=== PATIENT | female | born 1945 | race Caucasian/White ===

== ENCOUNTER 2017-07-11 10:39 | Inpatient (IN) | payer MEDICARE, OTHER ==
[~2017-07-11] VITALS: Ht 165.1 cm; Wt 92.2 kg
[~2017-07-11 10:39] MED LIST: ATOR40TA3 PO; BUSP10TA10 PO; CARV-49 PO; CLOP75TA15 PO; DEXA0.5E2 PO; DIAZ10TA PO; DULO60CA64 PO; FURO-150 PO; LISI-642 PO; LURA40TA3 PO; NITR0.4T51 SL; ONDA8TAB6 PO; OXYC-134 PO; POTA10TA15 PO; RIVA15TA PO; TRAZ-143 PO; ZALE10CA29 PO; [UNRECOGNIZED DRUG - CODE] CORPAK
[2017-07-11] MEDS ORDERED: LORazepam 1 MG tablet PO ONE (11:35)
[2017-07-11 14:13] LABS: BASOPHILS % (AUTO) 0 % (0-1); EOSINOPHILS # (AUTO) 0.1 X10'3 (0-0.9); EOSINOPHILS % (AUTO) 1.3 % (0-6); HEMATOCRIT 36.9 % (35.0-45.0); HEMOGLOBIN 12.9 g/dl (12.0-16.0); LYMPHOCYTES # (AUTO) 2.4 X10'3 (1.1-4.8); LYMPHOCYTES % (AUTO) 32.1 % (21-51); MEAN CORPUSCULAR HGB CONC 34.8 % (33.0-36.5); MEAN CORPUSCULAR VOLUME 94.7 FL (78-98); MEAN PLATELET VOLUME 7.9 FL (7.4-10.4); MONOCYTES # (AUTO) 0.6 X10'3 (0-0.9); MONOCYTES % (AUTO) 8.5 % (2-12); NEUTROPHILS # (AUTO) 4.4 X10'3 (1.8-7.7); NEUTROPHILS % (AUTO) 58.1 % (42-75); PLATELET COUNT 263 X10'3 (140-440); RED CELL DISTRIBUTION WIDTH 12.8 % (11.5-14.5); WHITE BLOOD COUNT 7.5 X10'3 (4.5-11.0)
[2017-07-11 14:37] LABS: ALANINE AMINOTRANSFERASE 19 U/L (12-78); ALBUMIN 3.6 G/DL (3.4-5.0); ALBUMIN/GLOBULIN RATIO 0.9 (1.1-1.5); ALKALINE PHOSPHATASE 96 IU/L (46-116); ANION GAP 10 (8-16); ASPARTATE AMINO TRANSFERASE 22 U/L (10-37); BILIRUBIN,TOTAL 1.2 MG/DL (0.1-1.0); BLOOD UREA NITROGEN 20 MG/DL (7-18); BUN/CREATININE RATIO 18.7 (6.6-38.0); CALCIUM 9.6 MG/DL (8.5-10.1); CHLORIDE 99 MMOL/L (99-107); CREATININE 1.07 MG/DL (0.40-0.90); ETHANOL < 0.010 GM/DL (0.0-0.010); GLUCOSE 134 MG/DL (70-104); SODIUM 138 MMOL/L (135-145); TOTAL CARBON DIOXIDE 29.2 MMOL/L (24-32); TOTAL PROTEIN 7.8 G/DL (6.4-8.2); eGFR 50 ML/MIN
[2017-07-11] MEDS ORDERED: ATOR40TA3 PO (17:18)
[2017-07-11] MEDS ORDERED: INSU100V9 SQ (17:18)
[2017-07-11] MEDS ORDERED: PRAM0.253 PO (17:18)
[2017-07-11] MEDS ORDERED: CARV-50 PO (17:18)
[2017-07-11] MEDS ORDERED: QUET25TA PO (17:18)
[2017-07-11] MEDS ORDERED: FURO-149 PO (17:18)
[2017-07-11] MEDS ORDERED: OXCA150T5 PO (17:18)
[2017-07-11] MEDS ORDERED: GABA800T2 PO (17:18)
[2017-07-11] MEDS ORDERED: OXYC-523 PO (17:18)
[2017-07-11 18:08] LABS: CLARITY,URINE SLIGHTLY CLOUDY (Clear); COLOR,URINE YELLOW (Yellow); GLUCOSE, URINE NEGATIVE (Neg); KETONES,URINE 40 mg/dl (Neg); LEUKOCYTE ESTERASE ,URINE MODERATE (Neg); NITRITES, URINE POSITIVE (Neg); OCCULT BLOOD,URINE NEGATIVE (Neg); PH,URINE 5.5 (4.8-8.0); PROTEIN,URINE NEGATIVE (Neg); UROBILINOGEN,URINE 0.2 E.U/dL (0.2-1.0)
[2017-07-11] MEDS ORDERED: nitroGLYCERIN 0.4mg SUBLingual tab SL PRN (18:15)
[2017-07-11 18:16] LABS: URINE AMPHETAMINE SCREEN NEGATIVE (Neg); URINE BARBITUATE SCREEN NEGATIVE (Neg); URINE BENZODIAZEPINES SCREEN POSITIVE (Neg); URINE CANNABINOID SCREEN NEGATIVE (Neg); URINE COCAINE SCREEN NEGATIVE (Neg); URINE METHADONE SCREEN NEGATIVE (Neg); URINE OPIATE SCREEN POSITIVE (Neg); URINE PHENCYCLIDINE SCREEN NEGATIVE (Neg)
[2017-07-11 18:18] LABS: UA COLLECTION TYPE CLN CATCH MIDSTREAM
[2017-07-11 18:20] LABS: BACTERIA,URINE 3+ /HPF (Neg); MUCUS STRANDS FEW /LPF (Neg); RBC,URINE NONE SEEN /HPF (0-2); SQUAMOUS EPITHELIAL CELL,UR FEW /LPF (FEW); WBC,URINE 50-100 /HPF (0-4)
[2017-07-11] MEDS ORDERED: CEPH-571 PO (18:50)
[2017-07-11] MEDS: cephalexin 250mg capsule PO SCH ×2 (19:21→20:00)
[2017-07-11] MEDS: carVEDilol 12.5mg tablet PO SCH (19:21)
[2017-07-11] MEDS: atorvastatin 20mg tablet PO SCH (20:18)
[2017-07-11] MEDS: oxcarbazepine 150mg tablet PO SCH (20:19)
[2017-07-11] MEDS: busPIRone 5mg tablet PO SCH (20:19)
[2017-07-11] MEDS: gabapentin 400mg capsule PO SCH (20:20)
[2017-07-11] MEDS: QUEtiapine 25mg tablet PO SCH (20:20)
[2017-07-11] MEDS: pramipexole 0.25mg tablet PO SCH (20:42)
[2017-07-11] MEDS ORDERED: insulin glargine (Lantus) pen - multi-dose SQ SCH (21:00)
[2017-07-12] MEDS ORDERED: LORazepam 1 MG tablet PO ONE (01:35)
[2017-07-12] MEDS ORDERED: ibuprofen tablet 400 MG TABLET PO ONE (01:35)
[2017-07-12] MEDS: cephalexin 250mg capsule PO SCH ×3 (01:48→13:17)
[2017-07-12] MEDS ORDERED: LORazepam 2 mg/ml vial IV ONE (06:10)
[2017-07-12] MEDS ORDERED: LORazepam 2 mg/ml vial ONE (06:19)
[2017-07-12] MEDS ORDERED: haloperidol lactate 5mg/ml inj IM ONE ×3 (06:39→07:52)
[2017-07-12] MEDS ORDERED: diphenhydrAMINE 50 mg/ml inj IM ONE (07:40)
[2017-07-12] MEDS ORDERED: LORazepam 2 mg/ml vial IM ONE (07:40)
[2017-07-12] MEDS ORDERED: normal saline 1000ML IV soln IVB ONE (07:45)
[2017-07-12] MEDS ORDERED: CefTRIAXone 2gm/D5W 50ml 50 ML IV ONE (07:45)
[2017-07-12 08:21] LABS: BASOPHILS % (AUTO) 0.4 % (0-1); EOSINOPHILS # (AUTO) 0.1 X10'3 (0-0.9); EOSINOPHILS % (AUTO) 1.6 % (0-6); HEMATOCRIT 35.2 % (35.0-45.0); HEMOGLOBIN 12.2 g/dl (12.0-16.0); LYMPHOCYTES % (AUTO) 30.2 % (21-51); MEAN CORPUSCULAR HEMOGLOBIN 32.6 PG (27.0-31.0); MEAN CORPUSCULAR HGB CONC 34.6 % (33.0-36.5); MEAN CORPUSCULAR VOLUME 94.3 FL (78-98); MEAN PLATELET VOLUME 7.9 FL (7.4-10.4); MONOCYTES # (AUTO) 0.7 X10'3 (0-0.9); MONOCYTES % (AUTO) 10.8 % (2-12); NEUTROPHILS # (AUTO) 3.7 X10'3 (1.8-7.7); PLATELET COUNT 233 X10'3 (140-440); RED BLOOD COUNT 3.73 X10'6 (4.20-5.60); RED CELL DISTRIBUTION WIDTH 13.1 % (11.5-14.5); WHITE BLOOD COUNT 6.5 X10'3 (4.5-11.0)
[2017-07-12 08:39] LABS: ALANINE AMINOTRANSFERASE 18 U/L (12-78); ALBUMIN 3.3 G/DL (3.4-5.0); ALBUMIN/GLOBULIN RATIO 0.8 (1.1-1.5); ALKALINE PHOSPHATASE 87 IU/L (46-116); ASPARTATE AMINO TRANSFERASE 21 U/L (10-37); BILIRUBIN,TOTAL 1.3 MG/DL (0.1-1.0); BLOOD UREA NITROGEN 19 MG/DL (7-18); BUN/CREATININE RATIO 16.2 (6.6-38.0); CALCIUM 9.6 MG/DL (8.5-10.1); CHLORIDE 99 MMOL/L (99-107); CREATININE 1.17 MG/DL (0.40-0.90); GLUCOSE 209 MG/DL (70-104); POTASSIUM 4.2 MMOL/L (3.5-5.1); TOTAL CARBON DIOXIDE 28.9 MMOL/L (24-32); TOTAL PROTEIN 7.3 G/DL (6.4-8.2); eGFR 45 ML/MIN
[2017-07-12 08:40] LABS: ANION GAP 10 (8-16); SODIUM 138 MMOL/L (135-145)
[2017-07-12] MEDS: potassium chloride 10mEq ER tablet PO SCH (12:30)
[2017-07-12] MEDS: lisinopril 5mg tablet PO SCH (12:30)
[2017-07-12] MEDS: duloxetine 30mg CAPSULE.DR PO SCH ×2 (12:30→12:51)
[2017-07-12] MEDS: gabapentin 400mg capsule PO SCH ×3 (13:00→21:10)
[2017-07-12] MEDS ORDERED: sulfamethoxazole/trimethoprim DS (800/160mg) tablet PO ONE (13:10)
[2017-07-12] MEDS: furosemide 40mg tablet PO SCH (13:11)
[2017-07-12] MEDS: carVEDilol 12.5mg tablet PO SCH ×2 (13:11→21:10)
[2017-07-12] MEDS: clopidogrel 75mg tablet PO SCH (13:12)
[2017-07-12] MEDS ORDERED: magnesium hydroxide 30ml (MOM) UD suspension PO PRN (14:40)
[2017-07-12] MEDS ORDERED: potassium Cl 40MEQ/NS 500ml 500 ML IV PRN ×2 (14:40)
[2017-07-12] MEDS ORDERED: magnesium Cl slow-release 64mg tablet PO PRN (14:40)
[2017-07-12] MEDS ORDERED: potassium Cl 20 mEq SR tablet PO PRN (14:40)
[2017-07-12] MEDS ORDERED: ondansetron/PF 4mg/2ml inj IV PRN (14:40)
[2017-07-12] MEDS ORDERED: magnesium 4gm in 100ml NS 100 ML IV PRN (14:40)
[2017-07-12] MEDS ORDERED: mag hydrox/Alum hydrox/simeth 30ml oral suspension PO PRN (14:40)
[2017-07-12] MEDS ORDERED: dextrose ORAL solution 15 GM/59 ML bottle PO PRN ×2 (14:40)
[2017-07-12] MEDS ORDERED: morphine 4 MG/ML inj SYRINge IV PRN (14:40)
[2017-07-12] MEDS ORDERED: glucagon, human recombinant 1mg kit SUBCUT PRN (14:40)
[2017-07-12] MEDS ORDERED: magnesium 2GM in 50ml NS 50 ML IV PRN (14:40)
[2017-07-12] MEDS ORDERED: dextrose 50%-water 50ml dispensing syringe IV PRN ×2 (14:40)
[2017-07-12] MEDS ORDERED: MESSAGE TO PHARMACY PO ONE (14:40)
[2017-07-12] MEDS ORDERED: acetaminophen 325mg tablet PO PRN (14:40)
[2017-07-12 15:22] LABS: HEMOGLOBIN A1C 7.6 % (4.5-6.2)
[2017-07-12] MEDS: normal saline 1000ml 1,000 ML IV SCH (15:40)
[2017-07-12] MEDS: insulin glargine (Lantus) pen - multi-dose SQ SCH (21:00)
[2017-07-12] MEDS ORDERED: temazepam 15mg capsule PO PRN (21:00)
[2017-07-12] MEDS: QUEtiapine 25mg tablet PO SCH (21:09)
[2017-07-12] MEDS: busPIRone 5mg tablet PO SCH (21:09)
[2017-07-12] MEDS: lactobacillus rhamnosus 10,000 MMU CELLS/CAPSULE PO SCH (21:09)
[2017-07-12] MEDS: atorvastatin 20mg tablet PO SCH (21:10)
[2017-07-12] MEDS: oxcarbazepine 150mg tablet PO SCH (21:10)
[2017-07-12] MEDS: pramipexole 0.25mg tablet PO SCH (21:28)
[2017-07-13 04:40] LABS: BASOPHILS % (AUTO) 0.3 % (0-1); EOSINOPHILS # (AUTO) 0.2 X10'3 (0-0.9); EOSINOPHILS % (AUTO) 2.7 % (0-6); HEMATOCRIT 34.7 % (35.0-45.0); HEMOGLOBIN 12.2 g/dl (12.0-16.0); LYMPHOCYTES # (AUTO) 2.3 X10'3 (1.1-4.8); LYMPHOCYTES % (AUTO) 39.3 % (21-51); MEAN CORPUSCULAR HEMOGLOBIN 32.9 PG (27.0-31.0); MEAN CORPUSCULAR VOLUME 93.8 FL (78-98); MEAN PLATELET VOLUME 8.2 FL (7.4-10.4); MONOCYTES # (AUTO) 0.6 X10'3 (0-0.9); MONOCYTES % (AUTO) 10.3 % (2-12); NEUTROPHILS # (AUTO) 2.8 X10'3 (1.8-7.7); NEUTROPHILS % (AUTO) 47.4 % (42-75); PLATELET COUNT 206 X10'3 (140-440); RED CELL DISTRIBUTION WIDTH 13.5 % (11.5-14.5); WHITE BLOOD COUNT 5.8 X10'3 (4.5-11.0)
[2017-07-13 04:59] LABS: ALBUMIN 3.1 G/DL (3.4-5.0); ANION GAP 10 (8-16); BLOOD UREA NITROGEN 15 MG/DL (7-18); CALCIUM 8.8 MG/DL (8.5-10.1); CHLORIDE 109 MMOL/L (99-107); GLUCOSE 165 MG/DL (70-104); MAGNESIUM 2.2 MG/DL (1.5-2.4); POTASSIUM 4.6 MMOL/L (3.5-5.1); SODIUM 145 MMOL/L (135-145); TOTAL CARBON DIOXIDE 26.5 MMOL/L (24-32); eGFR 55 ML/MIN
[2017-07-13] MEDS: normal saline 1000ml 1,000 ML IV SCH ×2 (06:30→17:47)
[2017-07-13] MEDS: K and/or MAG REPLACEMENT MC SCH (08:00)
[2017-07-13] MEDS: duloxetine 30mg CAPSULE.DR PO SCH ×2 (09:00→13:03)
[2017-07-13] MEDS: furosemide 40mg tablet PO SCH (09:00)
[2017-07-13] MEDS: gabapentin 400mg capsule PO SCH ×3 (09:00→21:03)
[2017-07-13] MEDS: clopidogrel 75mg tablet PO SCH (09:00)
[2017-07-13] MEDS: CefTRIAXone/D5W-Rocephin 1gm 50 ML IV SCH (09:00)
[2017-07-13] MEDS: lactobacillus rhamnosus 10,000 MMU CELLS/CAPSULE PO SCH ×2 (09:00→21:02)
[2017-07-13] MEDS: carVEDilol 12.5mg tablet PO SCH ×2 (09:00→20:00)
[2017-07-13] MEDS: rivaroxaban 15mg tablet PO SCH (10:46)
[2017-07-13] MEDS: insulin Lispro (HumaLOG) vial - multi-dose SQ SCH ×2 (12:56→18:15)
[2017-07-13] MEDS: lisinopril 5mg tablet PO SCH (13:03)
[2017-07-13] MEDS: potassium chloride 10mEq ER tablet PO SCH (13:03)
[2017-07-13 19:15] VITALS: BP 99/49
[2017-07-13] MEDS: busPIRone 5mg tablet PO SCH (21:03)
[2017-07-13] MEDS: QUEtiapine 25mg tablet PO SCH (21:03)
[2017-07-13] MEDS: pramipexole 0.25mg tablet PO SCH (21:03)
[2017-07-13] MEDS: atorvastatin 20mg tablet PO SCH (21:04)
[2017-07-13] MEDS: oxcarbazepine 150mg tablet PO SCH (21:09)
[2017-07-13] MEDS: insulin glargine (Lantus) pen - multi-dose SQ SCH (21:16)
[2017-07-13 23:00] VITALS: BP 125/56
[2017-07-14 03:00] VITALS: BP 111/51
[2017-07-14 06:05] LABS: ALBUMIN 3.1 G/DL (3.4-5.0); ANION GAP 11 (8-16); BLOOD UREA NITROGEN 12 MG/DL (7-18); BUN/CREATININE RATIO 12.6 (6.6-38.0); CALCIUM 8.6 MG/DL (8.5-10.1); CHLORIDE 109 MMOL/L (99-107); CREATININE 0.95 MG/DL (0.40-0.90); GLUCOSE 164 MG/DL (70-104); MAGNESIUM 1.8 MG/DL (1.5-2.4); POTASSIUM 3.7 MMOL/L (3.5-5.1); SODIUM 144 MMOL/L (135-145); TOTAL CARBON DIOXIDE 24.4 MMOL/L (24-32); eGFR 58 ML/MIN
[2017-07-14 06:30] LABS: BASOPHILS % (AUTO) 0.2 % (0-1); EOSINOPHILS # (AUTO) 0.2 X10'3 (0-0.9); EOSINOPHILS % (AUTO) 2.7 % (0-6); HEMATOCRIT 37.1 % (35.0-45.0); HEMOGLOBIN 12.8 g/dl (12.0-16.0); LYMPHOCYTES % (AUTO) 31.2 % (21-51); MEAN CORPUSCULAR HEMOGLOBIN 32.9 PG (27.0-31.0); MEAN CORPUSCULAR HGB CONC 34.5 % (33.0-36.5); MEAN CORPUSCULAR VOLUME 95.4 FL (78-98); MEAN PLATELET VOLUME 8.5 FL (7.4-10.4); MONOCYTES # (AUTO) 0.4 X10'3 (0-0.9); MONOCYTES % (AUTO) 6.9 % (2-12); NEUTROPHILS # (AUTO) 3.8 X10'3 (1.8-7.7); PLATELET COUNT 210 X10'3 (140-440); RED BLOOD COUNT 3.89 X10'6 (4.20-5.60); RED CELL DISTRIBUTION WIDTH 13.5 % (11.5-14.5); WHITE BLOOD COUNT 6.5 X10'3 (4.5-11.0)
[2017-07-14] MEDS: normal saline 1000ml 1,000 ML IV SCH ×2 (06:40→19:19)
[2017-07-14 07:00] VITALS: BP 144/72
[2017-07-14] MEDS: CefTRIAXone/D5W-Rocephin 1gm 50 ML IV SCH (08:35)
[2017-07-14] MEDS: gabapentin 400mg capsule PO SCH ×3 (08:39→19:18)
[2017-07-14] MEDS: clopidogrel 75mg tablet PO SCH (08:39)
[2017-07-14] MEDS: lactobacillus rhamnosus 10,000 MMU CELLS/CAPSULE PO SCH ×2 (08:39→19:18)
[2017-07-14] MEDS: carVEDilol 12.5mg tablet PO SCH ×2 (08:40→19:17)
[2017-07-14] MEDS: furosemide 40mg tablet PO SCH (08:40)
[2017-07-14] MEDS: duloxetine 30mg CAPSULE.DR PO SCH ×2 (08:54→14:21)
[2017-07-14 11:00] VITALS: BP 119/74
[2017-07-14] MEDS: rivaroxaban 15mg tablet PO SCH (12:03)
[2017-07-14] MEDS: HYDROcodone/acetaminophen 5mg/325mg tablet PO PRN ×2 (12:23→20:58)
[2017-07-14] MEDS: lisinopril 5mg tablet PO SCH (14:19)
[2017-07-14] MEDS: potassium chloride 10mEq ER tablet PO SCH (14:20)
[2017-07-14 15:00] VITALS: BP 125/62
[2017-07-14 19:00] VITALS: BP 123/68
[2017-07-14] MEDS: insulin Lispro (HumaLOG) vial - multi-dose SQ SCH (19:16)
[2017-07-14] MEDS: atorvastatin 20mg tablet PO SCH (19:17)
[2017-07-14] MEDS: oxcarbazepine 150mg tablet PO SCH (19:18)
[2017-07-14] MEDS: busPIRone 5mg tablet PO SCH (19:18)
[2017-07-14] MEDS: pramipexole 0.25mg tablet PO SCH (19:18)
[2017-07-14] MEDS: QUEtiapine 25mg tablet PO SCH (19:19)
[2017-07-14] MEDS: insulin glargine (Lantus) pen - multi-dose SQ SCH (20:50)
[2017-07-14] MEDS ORDERED: LORazepam 1 MG tablet PO PRN (21:50)
[2017-07-14 22:00] VITALS: BP 116/62
[2017-07-14] MEDS: K and/or MAG REPLACEMENT MC SCH (22:50)
[2017-07-15] MEDS: HYDROcodone/acetaminophen 5mg/325mg tablet PO PRN (01:58)
[2017-07-15 02:30] VITALS: BP 112/45
[2017-07-15 05:41] LABS: BASOPHILS % (AUTO) 0.4 % (0-1); EOSINOPHILS # (AUTO) 0.2 X10'3 (0-0.9); EOSINOPHILS % (AUTO) 3.2 % (0-6); HEMATOCRIT 32.6 % (35.0-45.0); HEMOGLOBIN 11.1 g/dl (12.0-16.0); LYMPHOCYTES # (AUTO) 2.3 X10'3 (1.1-4.8); LYMPHOCYTES % (AUTO) 38.7 % (21-51); MEAN CORPUSCULAR HEMOGLOBIN 32.2 PG (27.0-31.0); MEAN CORPUSCULAR VOLUME 94.8 FL (78-98); MONOCYTES # (AUTO) 0.5 X10'3 (0-0.9); MONOCYTES % (AUTO) 8.5 % (2-12); NEUTROPHILS # (AUTO) 2.9 X10'3 (1.8-7.7); NEUTROPHILS % (AUTO) 49.2 % (42-75); PLATELET COUNT 201 X10'3 (140-440); RED BLOOD COUNT 3.44 X10'6 (4.20-5.60); RED CELL DISTRIBUTION WIDTH 13.4 % (11.5-14.5); WHITE BLOOD COUNT 5.9 X10'3 (4.5-11.0)
[2017-07-15 06:00] VITALS: BP 130/68
[2017-07-15 06:03] LABS: ALBUMIN 2.8 G/DL (3.4-5.0); ANION GAP 11 (8-16); BLOOD UREA NITROGEN 12 MG/DL (7-18); BUN/CREATININE RATIO 13.5 (6.6-38.0); CALCIUM 8.4 MG/DL (8.5-10.1); CHLORIDE 107 MMOL/L (99-107); CREATININE 0.89 MG/DL (0.40-0.90); GLUCOSE 150 MG/DL (70-104); MAGNESIUM 1.7 MG/DL (1.5-2.4); POTASSIUM 3.4 MMOL/L (3.5-5.1); SODIUM 144 MMOL/L (135-145); TOTAL CARBON DIOXIDE 25.7 MMOL/L (24-32); eGFR 62 ML/MIN
[2017-07-15] MEDS: lactobacillus rhamnosus 10,000 MMU CELLS/CAPSULE PO SCH (07:52)
[2017-07-15] MEDS: CefTRIAXone/D5W-Rocephin 1gm 50 ML IV SCH (07:52)
[2017-07-15] MEDS: clopidogrel 75mg tablet PO SCH (07:52)
[2017-07-15] MEDS: duloxetine 30mg CAPSULE.DR PO SCH ×2 (07:52→12:25)
[2017-07-15] MEDS: carVEDilol 12.5mg tablet PO SCH (07:53)
[2017-07-15] MEDS: furosemide 40mg tablet PO SCH (07:53)
[2017-07-15] MEDS: rivaroxaban 15mg tablet PO SCH (07:53)
[2017-07-15] MEDS: gabapentin 400mg capsule PO SCH ×2 (07:53→12:25)
[2017-07-15] MEDS: K and/or MAG REPLACEMENT MC SCH (07:55)
[2017-07-15] MEDS: potassium Cl 20 mEq SR tablet PO PRN ×2 (08:05→12:25)
[2017-07-15] MEDS: insulin Lispro (HumaLOG) vial - multi-dose SQ SCH (08:32)
[2017-07-15] MEDS: normal saline 1000ml 1,000 ML IV SCH (09:20)
[2017-07-15 11:30] VITALS: BP 133/67
[2017-07-15] MEDS ORDERED: LEVO500T2 PO (12:18)
[2017-07-15] MEDS ORDERED: INSU100V9 SQ (12:18)
[2017-07-15] MEDS ORDERED: FURO-149 PO (12:19)
[2017-07-15] MEDS: lisinopril 5mg tablet PO SCH (12:25)
[2017-07-15] MEDS: potassium chloride 10mEq ER tablet PO SCH (12:26)
[2017-07-15 15:30] VITALS: BP 146/76
== END 2017-07-15 17:47 | disposition home health service (06) | DRG 64 ==
LOC: ER 10:40 → ED HOLD 07-12 14:40 → EDBEDREQ 07-13 17:42 → PCU 3S 07-13 19:03
PROVIDERS: ADMIT Internal Medicine; ATTEND Internal Medicine
DX: I63.9 Cerebral infarction, unspecified (principal); N17.0 Acute kidney failure with tubular necrosis; G92 Toxic encephalopathy; F33.3 Major depressive disorder, recurrent, severe with psychotic symptoms; N39.0 Urinary tract infection, site not specified; F03.91 Unspecified dementia, unspecified severity, with behavioral disturbance; I50.22 Chronic systolic (congestive) heart failure; F05 Delirium due to known physiological condition; E86.0 Dehydration; F41.9 Anxiety disorder, unspecified; E11.40 Type 2 diabetes mellitus with diabetic neuropathy, unspecified; I25.10 Atherosclerotic heart disease of native coronary artery without angina pectoris; Z90.710 Acquired absence of both cervix and uterus; Z90.721 Acquired absence of ovaries, unilateral; Z90.49 Acquired absence of other specified parts of digestive tract; Z95.0 Presence of cardiac pacemaker; Z88.2 Allergy status to sulfonamides; Z88.8 Allergy status to other drugs, medicaments and biological substances; Z79.899 Other long term (current) drug therapy; Z79.4 Long term (current) use of insulin; Z86.73 Personal history of transient ischemic attack (TIA), and cerebral infarction without residual deficits; Z83.3 Family history of diabetes mellitus
CPT/HCPCS: 36415; 70450; 80048; 80053; 80305; 80320; 81001; 82948; 83036; 83735; 84443; 85025; 93306; 93880; 96365; 96366; 96372; 96375; 99285; A6212; J0696; J1200; J1630; J1815; J2060; J7030

== ENCOUNTER 2018-07-07 16:04 | Inpatient (IN) | payer MEDICARE, MEDICAID | END 2018-07-11 16:35 | disposition home or self-care (01) | LOC: ADULT MH 16:04 | DX: F33.9 Major depressive disorder, recurrent, unspecified (principal); F41.9 Anxiety disorder, unspecified; I11.0 Hypertensive heart disease with heart failure; I50.9 Heart failure, unspecified ==